=== PATIENT | male | born 1980 | race Caucasian/White ===

== ENCOUNTER 2017-11-05 12:40 | Emergency (ER) | payer BC ==
[~2017-11-05] VITALS: Ht 175.3 cm; Wt 76.7 kg
[2017-11-05] MEDS ORDERED: IV NORMAL SALINE 1000 ML BAG IV ONE (13:00)
[2017-11-05] MEDS ORDERED: KETOROLAC TROMETHAMINE 15 MG INJ IV ONE (13:00)
[2017-11-05] MEDS ORDERED: ONDANSETRON 4 MG/2 ML VIAL IV ONE (13:00)
--- NOTE | 2017-11-05 13:00 | NUR ---
pt. seen by as reported.
[2017-11-05] MEDS ORDERED: KETOROLAC TROMETHAMINE 30 MG INJ ONE (13:12)
[2017-11-05] MEDS ORDERED: ONDANSETRON 4 MG/2 ML VIAL ONE (13:12)
[2017-11-05 13:13] LABS: BASOPHILS # (AUTO) 0.1 K/uL (0.0-8.0); BASOPHILS % (AUTO) 0.7 % (0.0-2.0); EOSINOPHILS # (AUTO) 0.2 K/uL (0.0-0.7); EOSINOPHILS % (AUTO) 2.6 % (0.0-7.0); HEMATOCRIT 41.6 % (36.7-47.1); HEMOGLOBIN 14.2 g/dL (12.5-16.3); LYMPHOCYTES # (AUTO) 2.3 K/uL (20.0-40.0); LYMPHOCYTES % (AUTO) 25.2 % (20.5-51.5); MEAN CORPUSCULAR HEMOGLOBIN 30.2 uug (23.8-33.4); MEAN CORPUSCULAR HGB CONC 34 g/dL (32.5-36.3); MEAN CORPUSCULAR VOLUME 88.2 fL (73.0-96.2); MONOCYTES # (AUTO) 0.8 K/uL (2.0-10.0); MONOCYTES % (AUTO) 8.8 % (0.0-11.0); NEUTROPHILS # (AUTO) 5.8 K/uL (1.8-8.9); NEUTROPHILS % (AUTO) 62.7 % (38.5-71.5); PLATELET COUNT (AUTO) 201 K/uL (152-348); RED BLOOD CELL COUNT(AUTO) 4.71 MIL/uL (4.06-5.63); WHITE BLOOD COUNT (AUTO) 9.2 K/uL (3.6-10.2)
--- NOTE | 2017-11-05 13:20 | NUR ---
Pt. taken down for CT.
[2017-11-05 13:30] LABS: POTASSIUM 3.9 mmol/L (3.5-5.1)
[2017-11-05 13:36] LABS: BILIRUBIN,DIRECT 0.1 mg/dL (0.0-0.2); BILIRUBIN,TOTAL 0.3 mg/dL (0.2-1.0); TOTAL PROTEIN, SERUM 6.8 g/dL (6.4-8.2)
--- NOTE | 2017-11-05 14:02 | NUR ---
Dcd home instructions given to pt. who verbalized understanding.
--- NOTE | 2017-11-05 14:19 | NUR ---
patient taken out via wheelchair, taken back home via private car by .
[2017-11-05 14:45] LABS: *BILIRUBIN,URIN NEGATIVE (NEGATIVE); *BLOOD, URINE NEGATIVE (NEGATIVE); *CLARITY,URINE CLOUDY (CLEAR); *COLOR,URINE YELLOW (YELLOW); *KETONES,URINE 1+ (NEGATIVE); *PROTEIN,URINE NEGATIVE (NEGATIVE); *UROBILINOGEN,URINE 0.2 E.U./dl (NORMAL); LEUKOCYTE ESTERASE ,URINE TRACE (NEGATIVE); NITRITE, URINE NEGATIVE (NEGATIVE); PH,URINE 7.5 (5.0-8.0); UGLUCOSE NEGATIVE (NEGATIVE)
[2017-11-05 15:35] LABS: BACTERIA,URINE NONE SEEN /HPF (NONE SEEN); RBC,URINE 0-3 /HPF (0-3); SQUAMOUS EPITHELIAL CELL,UR FEW /HPF (NONE SEEN); URINE AMORPHOUS URATE MODERATE /HPF
== END 2017-11-05 14:22 | disposition home or self-care (01) ==
LOC: ER 12:43
DX: K52.9 Noninfective gastroenteritis and colitis, unspecified (principal)
CPT/HCPCS: 36415; 83690; 85025; A4663; J1885; J2405; J7030